=== PATIENT | male | born 1975 | race Caucasian/White ===

== ENCOUNTER 2021-06-08 09:50 | Day surgery (SDC) | payer OTHER, SELFPAY ==
[2021-06-08] VITALS (8 sets, daily range): BP systolic 95–142; BP diastolic 61–93; PULSE 68–115; RESP 16–18; TEMP 36.1–36.9; O2SAT 90–100; BMI 25.9
[2021-06-08] MEDS: Lactated Ringers 1,000 ML 30 ML IV (10:37)
--- NOTE | 2021-06-08 14:15 | RAD_ITS ---
STUDY: X-RAY - RIGHT ANKLE REASON FOR EXAM: Male, 45 years old. ORIF, ANKLE SYNDESMOSIS TECHNIQUE: 2 view(s) of the ankle. COMPARISON: None. FINDINGS: Fluoroscopy of the right ankle was utilized the operating room during distal syndesmosis stabilization.. RAD/Ankle 2 Views IMPRESSION: Fluoroscopy during surgery. Electronically Signed: Lauro Jurado MD at 16:55 EST Tel , Service support ,
[2021-06-08] MEDS: Bupivacaine Mpf 0.5% 30 ML VIAL (14:25)
--- NOTE | 2021-06-08 14:42 | PCM.OPRPT ---
Report of Operation Date of Procedure: 06/08/21 Description of Surgical Findings:: Description of Surgical Findings:: Preoperative diagnosis: 1. Right ankle syndesmosis rupture/[place]ison[place]uve fracture Postoperative diagnosis: 1. Right ankle syndesmosis rupture/[place] fracture Procedure: Open reduction internal fixation right ankle syndesmosis Primary Surgeon: Tenzin Rae DO Anesthesia: General Spinneret Person: Po Terrell CRNA Complications: None apparent Estimated blood loss: 10 cc IV fluids: Per anesthesia record Intraoperative medications: 2 g Ancef, 30 cc 0.5% plain Marcaine Field and ankle block Urine output: None recorded Specimen: None Packing/drains: None Implants: Arthrex tight rope x2 Preoperative indications: This is an otherwise healthy 45-year-old male who sustained a a twisting ankle injury to his right ankle approximately 1 month ago. He was initially seen by [facility]. Initial ankle x-rays were unremarkable. He was subsequently referred to our office where full-length tib-fib films revealed a fibular neck fracture proximally, and subsequent stress radiographs of the ankle revealed syndesmotic instability. Operative intervention in the form of right ankle syndesmosis open reduction internal fixation was reviewed with the patient. I discussed the risks, benefits, alternatives to procedure. Risks included but were not limited to bleeding, infection, loss of life or limb, persistent pain, persistent instability, stiffness, hardware removal or symptomatic hardware, posttraumatic arthritis, risk of anesthesia. Patient expressed understanding of these risks and wished to proceed with surgery. Description of procedure: Patient was identified in the preoperative holding area by name, medical record number, and date of . The operative extremity was marked. All questions were answered to patient satisfaction. Informed set was confirmed. At time of his procedure, patient was brought to the operative suite and positioned supine a standard operating table. General anesthesia was induced and laryngeal mask airway placed. After securing the tube, patient was positioned for surgery. I bump was placed under the patient's right hip and the right lower extreme was elevated on bath blankets. All bony prominences were well-padded. We then prepped and draped the right ankle in a normal, sterile orthopedic fashion. We then performed a timeout with all parties in attendance in agreement with the side, site, operation to be performed. No concerns were voiced and elected proceed. 2 g Ancef was administered by the incision by anesthesia staff. I first brought in fluoroscopy to perform stress radiography of the ankle. An external rotation, abduction stress test was applied to the right ankle and revealed medial clear space widening and increased tib-fib gapping. I then planned my incision overlying the syndesmosis. Skin was sharply incised with a 15 blade scalpel. Dissection was carried down to the level of the periosteum of the fibula. I opened the anterior compartment fascia to gain access to the syndesmosis. I placed a hemostat within the syndesmosis applying a translatory cotton test, which also demonstrated syndesmotic instability. I applied digital pressure over the lateral fibula to reduce the syndesmosis. I then drilled quad cortically for a Arthrex tight rope at the inferior portion of the syndesmosis and approximately 30 degree anterior angle in line with the the [place] syndesmosis. The 3.5 mm drill was then removed and the tight rope was passed through all 4 cortices. I then flipped the button and subsequently tightened the suture button device to maximum tension. 2 half hitch stitches were then tied over the fibular button and cut. Approximately 1 cm proximal, and additional quad cortical drill course was made parallel with the prior 1 and parallel with the tibial plafond. Again, the tight rope was passed, flipped, tightened, and tied. Sutures were cut. Fluoroscopic stress test was applied and syndesmosis appeared stable. Wounds were copiously irrigated with normal saline. A field block and ankle block was administered with 30 cc 0.5% plain Marcaine. Dermis was reapproximated with 2-0 Vicryl suture. Horizontal mattress 3-0 nylon suture was used to reapproximate the skin. Sterile compression dressing applied as well as a well-padded posterior fiberglass splint was applied. Patient was able to be safely extubated in the operative suite without difficulty. He was transferred to his hospital bed and subsequently to PACU in stable condition. Post Operative Plan: Weightbearing: Nonweightbearing operative extremity Antibiotics: 2 g Ancef x 1 dose preoperatively DVT Prophylaxis:ASA 81 mg BID Ryan: None Dressing: Maintain splint, keep it clean dry and intact until follow-up X-Rays: 2 weeks postop in the office Pain Medication: Perocet sent to pharmacy Follow-up: 2 weeks post-operatively with me in the office
--- NOTE | 2021-06-08 15:00 | RAD_ITS ---
STUDY: X-RAY - RIGHT ANKLE REASON FOR EXAM: Male, 45 years old. post op TECHNIQUE: 3 view(s) of the ankle. COMPARISON: None. FINDINGS: Status post stabilization of the distal syndesmosis with 2 tunnels and anchors through the distal tibia and fibula. Normal medial and lateral malleoli. Normal tibiotalar articulation and ankle mortise. Normal visualized talus and calcaneus. The visualized subtalar, talonavicular, calcaneocuboid and tarsal articulations are normal. Fiberglass cast obscures soft tissue and bony detail. RAD/Ankle min 3 Views IMPRESSION: Status post stabilization of the distal syndesmosis. Electronically Signed: Lauro Jurado MD at 15:20 EST Tel , Service support ,
== END 2021-06-08 16:54 | disposition home or self-care (01) ==
LOC: SDC 09:58 → AC 10:02
PROVIDERS: Referring Provider Student in an Organized Health Care Education/Training Program; Visit Provider Student in an Organized Health Care Education/Training Program
PROC: (CPT 27829; principal; 2021-06-08 11:20)
DX: S82.861A Displaced Maisonneuve's fracture of right leg, initial encounter for closed fracture (principal); X50.1XXA Overexertion from prolonged static or awkward postures, initial encounter; Y93.9 Activity, unspecified; M19.90 Unspecified osteoarthritis, unspecified site
CPT/HCPCS: 01480; 27829; 73600; 73610; 76000; C1713; J7120; J2405